=== PATIENT | male | born 1990 | race Caucasian/White ===

== ENCOUNTER 2018-02-06 09:47 | Emergency (ER) | payer SELFPAY ==
[~2018-02-06] VITALS: Ht 167.6 cm; Wt 68.2 kg
[2018-02-06 09:49] VITALS: Ht 167.6 cm; Wt 68.2 kg
[2018-02-06] MEDS ORDERED: ULTRAM50 MG PO (10:58)
[2018-02-06 12:26] VITALS: BP 108/57
== END 2018-02-06 12:27 | disposition home or self-care (01) ==
LOC: D.ER 09:47
DX: S52.502A Unspecified fracture of the lower end of left radius, initial encounter for closed fracture (principal); X58.XXXA Exposure to other specified factors, initial encounter; Y93.89 Activity, other specified; Y92.89 Other specified places as the place of occurrence of the external cause; F17.200 Nicotine dependence, unspecified, uncomplicated